=== PATIENT | female | born 1990 | race Native Hawaiian/Other Pacific Islander ===

== ENCOUNTER 2023-12-02 11:46 | Emergency (ER) | payer BC ==
[~2023-12-02] VITALS: Ht 162.6 cm; Wt 76.2 kg
[~2023-12-02 11:46] MED LIST: APRE30TA2 PO; CEPH500C2 PO
[2023-12-02] MEDS ORDERED: SELE120S3 TP (12:27)
[2023-12-02 12:44] LABS: BASOPHILS # (AUTO) 0.3 K/UL (0.0-0.2); BASOPHILS % (AUTO) 3.8 % (0.0-2.0); EOSINOPHILS # (AUTO) 0.1 K/uL (0.0-0.7); EOSINOPHILS % (AUTO) 0.9 % (0.0-7.0); HEMOGLOBIN 13.8 g/dL (10.9-14.3); LYMPHOCYTES # (AUTO) 0.9 K/uL (0.8-4.8); LYMPHOCYTES % (AUTO) 9.7 % (20.5-51.5); MEAN CORPUSCULAR HEMOGLOBIN 29.8 uug (24.7-32.8); MEAN CORPUSCULAR HGB CONC 34 g/dL (32.3-35.6); MEAN CORPUSCULAR VOLUME 88.7 fL (75.5-95.3); MONOCYTES # (AUTO) 0.6 K/uL (0.1-1.30); MONOCYTES % (AUTO) 6.9 % (0.0-11.0); NEUTROPHILS # (AUTO) 7.2 K/uL (1.8-8.9); NEUTROPHILS % (AUTO) 78.7 % (38.5-71.5); PLATELET COUNT (AUTO) 296 K/uL (179-408); RED BLOOD CELL COUNT(AUTO) 4.63 MIL/uL (3.63-4.92); RED CELL DISTRIBUTION WIDTH 13.6 % (12.3-17.7); WHITE BLOOD COUNT (AUTO) 9.2 K/uL (3.8-11.8)
[2023-12-02 12:56] LABS: CARBON DIOXIDE 28 mmol/L (21-32); CHLORIDE 99 mmol/L (98-107); CREATININE 0.8 mg/dL (0.6-1.3); GLUCOSE 93 mg/dL (74-106); POTASSIUM 3.8 mmol/L (3.5-5.1); SODIUM SERUM 138 mmol/L (136-145); UREA NITROGEN, BLOOD 5 mg/dL (7-18)
[2023-12-02 13:05] LABS: ALANINE AMINOTRANSFERASE 33 U/L (14-59); ALBUMIN 3.7 g/dL (3.4-5.0); ALKALINE PHOSPHATASE 54 U/L (50-136); ASPARTATE AMINOTRANSFERASE 21 U/L (15-37); BILIRUBIN,TOTAL 0.3 mg/dL (0.2-1.0); TOTAL PROTEIN, SERUM 8.1 g/dL (6.4-8.2)
[2023-12-02 13:06] LABS: BILIRUBIN,DIRECT < 0.1 mg/dL (0.0-0.2)
[2023-12-02] MEDS ORDERED: AZIT500T PO (13:12)
[2023-12-02] MEDS ORDERED: PRED50TA PO (13:12)
[2023-12-02] MEDS ORDERED: PROM118S5 PO (13:12)
[2023-12-02 13:32] VITALS: BP 131/75; TEMP 98.4; O2SAT 97
== END 2023-12-02 13:33 | disposition home or self-care (01) ==
LOC: ER 11:47
DX: J18.9 Pneumonia, unspecified organism (principal); R10.2 Pelvic and perineal pain; Z79.899 Other long term (current) drug therapy; Z20.822 Contact with and (suspected) exposure to COVID-19; Z60.2 Problems related to living alone
CPT/HCPCS: 36415; 71045; 83605; 84484; 85025; 87040; A4606; A4663

== ENCOUNTER 2024-10-20 07:29 | Emergency (ER) | payer BC ==
[~2024-10-20] VITALS: Ht 172.7 cm; Wt 65.3 kg
[~2024-10-20 07:29] MED LIST changes: +AZIT500T PO; +PRED50TA PO; +PROM118S5 PO; +SELE120S3 TP
[2024-10-20 08:01] LABS: *BILIRUBIN,URIN NEGATIVE (NEGATIVE); *BLOOD, URINE 1+ (NEGATIVE); *CLARITY,URINE CLEAR (CLEAR); *COLOR,URINE Orange (YELLOW); *KETONES,URINE NEGATIVE (NEGATIVE); *PROTEIN,URINE NEGATIVE (NEGATIVE); LEUKOCYTE ESTERASE ,URINE TRACE (NEGATIVE); NITRITE, URINE POSITIVE (NEGATIVE); PH,URINE 5.5 (5.0-8.0); UGLUCOSE TRACE (NEGATIVE)
[2024-10-20 08:04] LABS: *URINE HCG, QUAL NEGATIVE (NEGATIVE); BACTERIA,URINE MODERATE /HPF (NONE SEEN); SQUAMOUS EPITHELIAL CELL,UR FEW /HPF (NONE SEEN)
[2024-10-20] MEDS ORDERED: FLUC200T PO (08:17)
[2024-10-20] MEDS ORDERED: PHEN-705 PO (08:17)
[2024-10-20] MEDS ORDERED: FLUCONAZOLE 100 MG TABLET ONE (08:18)
[2024-10-20] MEDS: CEphaleXIN 500 MG CAPSULE PO ONE (08:18)
[2024-10-20] MEDS ORDERED: CEphaleXIN 500 MG CAPSULE ONE (08:18)
[2024-10-20] MEDS: FLUCONAZOLE 100 MG TABLET PO ONE (08:18)
[2024-10-20 08:29] VITALS: BP 122/80; O2SAT 99
== END 2024-10-20 08:29 | disposition home or self-care (01) ==
LOC: ER 07:32
DX: N39.0 Urinary tract infection, site not specified (principal); B37.31 Acute candidiasis of vulva and vagina; Z79.52 Long term (current) use of systemic steroids; Z60.2 Problems related to living alone
CPT/HCPCS: 84703; 87077; 87086; A4606; A4663